=== PATIENT | male | born 1950 | race Caucasian/White ===

== ENCOUNTER → 2019-04-23 | Outpatient (CLI) | payer OTHER | END | disposition home or self-care (01) | LOC: RAH 10:12 | PROVIDERS: ATTEND Internal Medicine Cardiovascular Disease | DX: Z13.6 Encounter for screening for cardiovascular disorders (principal); R94.31 Abnormal electrocardiogram [ECG] [EKG] | CPT/HCPCS: 75571 ==

== ENCOUNTER 2019-04-30 13:00 | Inpatient (IN) | payer MEDICARE ==
[~2019-04-30] VITALS: Ht 181.6 cm; Wt 89.4 kg
[2019-04-30 15:00] LABS: BASOPHILS % (AUTO) 0.8 % (0.0-5.0); EOSINOPHILS % (AUTO) 3.3 % (0.0-8.0); HEMATOCRIT 41.7 % (42-54); LYMPHOCYTES % (AUTO) 30.1 % (21.0-51.0); MEAN CORPUSCULAR HEMOGLOBIN 31.9 pg (27.0-33.0); MEAN CORPUSCULAR HGB CONC 33.8 g/dL (32.0-36.0); MEAN CORPUSCULAR VOLUME 94.3 fL (79-99); MONOCYTES % (AUTO) 10.3 % (3.0-13.0); NEUTROPHILS % (AUTO) 55.4 % (40.0-77.0); PLATELET COUNT (AUTO) 231 K/uL (130-400); RED BLOOD CELL COUNT(AUTO) 4.42 MIL/uL (4.50-6.20); RED CELL DISTRIBUTION WIDTH 12.6 % (11.0-15.5); WHITE BLOOD COUNT (AUTO) 7.5 K/uL (4.8-10.8)
[2019-04-30 15:06] VITALS: BP 143/83
[2019-04-30 15:07] LABS: POTASSIUM 4.1 mmol/L (3.5-5.1)
[2019-04-30] MEDS ORDERED: ADAL40PE SQ (15:41)
[2019-04-30] MEDS ORDERED: ROSU20TA23 PO (15:41)
[2019-04-30] MEDS ORDERED: ASPI-555 PO (15:41)
[2019-04-30] MEDS ORDERED: CHLO25TA3 PO (15:41)
[2019-04-30] MEDS ORDERED: TIZA2CAP PO (15:41)
[2019-04-30] MEDS ORDERED: LEVO25TA4 PO (15:41)
[2019-05-01] VITALS (24 sets, daily range): BP systolic 93–144; BP diastolic 41–75
[2019-05-01] MEDS ORDERED: CEFAZOLIN SODIUM 1 GM VIAL ONE ×2 (05:59→11:22)
[2019-05-01] MEDS ORDERED: LACTATED RINGERS 1000ML 1,000 ML IV ONE ×2 (05:59→15:01)
[2019-05-01] MEDS ORDERED: BUPIVACAINE/EPI/PF 0.5% 30ML VIAL IJ ONE (06:30)
[2019-05-01] MEDS ORDERED: DURAMORPH PF1 MG/ML 10ML AMP IV ONE (06:30)
[2019-05-01] MEDS ORDERED: THROMBIN-JMI 20000 UNIT KIT TP ONE (06:31)
[2019-05-01] MEDS ORDERED: BACITRACIN 50,000 UNIT VIAL ONE (06:31)
--- NOTE | 2019-05-01 06:32 | NUR ---
SX PETAR TEDS/SCD APPLIED
[2019-05-01] MEDS ORDERED: SUCCINYLCHOLINE 200MG/10ML SYR ONE (06:40)
[2019-05-01] MEDS ORDERED: DEXAMETHASONE SOD PHOSPHATE 10MG/ML 1ML VIAL ONE (06:41)
[2019-05-01] MEDS ORDERED: GLYCOPYRROLATE 1 MG/5 ML SYRINGE ONE (06:41)
[2019-05-01] MEDS ORDERED: LIDOCAINE PF 2% 5ML ABBOJECT ONE (06:41)
[2019-05-01] MEDS ORDERED: PROPOFOL 10 MG/ML 20ML VIAL IV ONE (06:42)
[2019-05-01] MEDS ORDERED: MIDAZOLAM HCL 1 MG/ML 2ML VIAL ONE (06:42)
[2019-05-01] MEDS ORDERED: ONDANSETRON HCL 4 MG/2 ML VIAL ONE ×2 (06:42→13:20)
[2019-05-01] MEDS ORDERED: ROCURONIUM 10MG/1ML SYR 10 MG/ML ML ONE (06:42)
[2019-05-01] MEDS ORDERED: NEOSTIGMINE 5MG/5ML SYR IV ONE (06:42)
[2019-05-01] MEDS ORDERED: FENTANYL CITRATE PF 50 MCG/1 ML 2ML VIAL ONE ×5 (06:43→13:16)
[2019-05-01] MEDS ORDERED: EPHEDRINE SULFATE 50 MG/ML AMPULE ONE (07:41)
[2019-05-01] MEDS: CEFAZOLIN SODIUM 1 GM VIAL IVP ONE ×2 (08:00→12:00)
[2019-05-01] MEDS ORDERED: PHENYLEPHRINE HCL 10 MG/ML 1ML VIAL IV ONE ×2 (08:20→13:17)
[2019-05-01] MEDS ORDERED: GENTAMICIN 80 MG/NS 100 ML PB 100 ML IV ONE (09:07)
[2019-05-01] MEDS: LACTATED RINGERS 1000ML 1,000 ML IV SCH (13:32)
[2019-05-01] MEDS ORDERED: HYDROCODONE/ACETAMINOPHEN 5/325 MG TAB PO PRN (13:45)
[2019-05-01] MEDS: CEFAZOLIN SODIUM 1 GM VIAL IVP SCH ×2 (13:45→20:19)
[2019-05-01] MEDS ORDERED: TIZANIDINE HCL 2 MG TABLET PO PRN (13:45)
[2019-05-01] MEDS ORDERED: SODIUM CHLORIDE 0.9% 10 ML VIAL IVP PRN (13:45)
[2019-05-01] MEDS ORDERED: PROMETHAZINE HCL 25 MG/ML 1ML AMPULE IM PRN (13:45)
[2019-05-01] MEDS: DEXAMETHASONE SOD PHOSPHATE 4 MG/ML 1ML VIAL IVP SCH ×2 (13:45→20:19)
--- NOTE | 2019-05-01 17:30 | NUR ---
ALONSO DRAIN SUCTION APPLIED TO ALONSO DRAIN. 30CC SANGUINOUS FLUID REMOVED PRIOR TO SUCTION
[2019-05-01] MEDS ORDERED: ATORVASTATIN CALCIUM 40 MG TABLET PO SCH (21:00)
[2019-05-01] MEDS: MORPHINE SULFATE 2 MG/ML 1ML SYG IVP PRN (21:59)
[2019-05-02] MEDS: MORPHINE SULFATE 2 MG/ML 1ML SYG IVP PRN (01:48)
[2019-05-02] MEDS: DEXAMETHASONE SOD PHOSPHATE 4 MG/ML 1ML VIAL IVP SCH ×2 (01:48→08:16)
[2019-05-02] MEDS: LACTATED RINGERS 1000ML 1,000 ML IV SCH (02:29)
[2019-05-02 03:58] VITALS: BP 102/65
[2019-05-02] MEDS: CEFAZOLIN SODIUM 1 GM VIAL IVP SCH (05:20)
[2019-05-02] MEDS ORDERED: LEVOTHYROXINE 25 MCG TABLET PO SCH (06:30)
[2019-05-02 07:44] VITALS: BP 107/56
[2019-05-02] MEDS ORDERED: HUMIRA 40 MG SQ SCH (09:00)
[2019-05-02] MEDS ORDERED: ASPIRIN 81 MG EC TAB PO SCH (09:00)
[2019-05-02] MEDS ORDERED: HYDROCHLOROTHIAZIDE 25 MG TABLET PO SCH (09:00)
--- NOTE | 2019-05-02 10:41 | NUR ---
INFLUENZA VACCINE PER DATABASE, PT RECEIVED FLU VACCINE ON 03/15. Addendum: 05/02/19 at 1042 by OPHELIA VALLE RN Amended: Links added.
--- NOTE | 2019-05-02 11:00 | NUR ---
DISCHARGE INSTRUCTIONS GIVEN AND EXPLAINED UTILIZING TEACH BACK METHOD. INSTRUCTED TO TAKE STAPLE REMOVAL KIT PROVIDED TO WITH THEM TO DR. ONEILL'S APPOINTMENT, AND PT VERBALIZED UNDERSTANDING. EXPLAINED PROCEDURE FOR REMOVING ALONSO DRAIN AND CHANGING DRESSING, PT VERBALIZED UNDERSTANDING. TEACHING WITH TEACH BACK METHOD WAS DONE AND EXPLAINED TO PT'S REGARDING DRESSING CHANGE, RETURNED VERBAL DEMONSTRATION. REMOVED OLD DRESSING WITH MODERATE AMOUNT OF SANGUINEOUS DRAINAGE WITH NO ACTIVE DRAINAGE. NO REDNESS OR TENDERNESS. MILD SWELLING. NEELA INTACT. REMOVED NEELA TO ALONSO DRAIN, REMOVED SUCTION AND REMOVED ALONSO DRAIN WITH 45CC SANGUINEOUS DRAINAGE. CLEANSED SITE WITH 4X4 GAUZE AND NS, PAT DRIED AND PLACED DRESSING WITH 4X4 GAUZE SECURED WITH TAPE. PT TOLERATED WELL.
== END 2019-05-02 12:13 | disposition home or self-care (01) | DRG 460 ==
LOC: EDSTATUS 13:00 → EDUNIT# 13:00 → DAHIP 05-01 05:56 → 4AH 05-01 13:44
PROVIDERS: ADMIT Neurological Surgery; ATTEND Neurological Surgery
PROC: 0SG00AJ Fusion of Lumbar Vertebral Joint with Interbody Fusion Device, Posterior Approach, Anterior Column, Open Approach (ICD-10-PCS; principal; 2019-05-01 07:30)
PROC: 0SB20ZZ Excision of Lumbar Vertebral Disc, Open Approach (ICD-10-PCS; 2019-05-01 07:30)
PROC: 01NR0ZZ Release Sacral Nerve, Open Approach (ICD-10-PCS; 2019-05-01 07:30)
PROC: 4A11X4G Monitoring of Peripheral Nervous Electrical Activity, Intraoperative, External Approach (ICD-10-PCS; 2019-05-01 07:30)
DX: M48.061 Spinal stenosis, lumbar region without neurogenic claudication (principal); M51.26 Other intervertebral disc displacement, lumbar region; I10 Essential (primary) hypertension; M06.9 Rheumatoid arthritis, unspecified; E78.5 Hyperlipidemia, unspecified; Z79.82 Long term (current) use of aspirin
CPT/HCPCS: 36415; 71045; 72110; 80048; 85025; A4344; G0378; J0330; J0690; J1100; J1580; J2001; J2250; J2274; J2370; J2405; J2704; J2710; J3010; J3490; J7120

== ENCOUNTER → 2019-05-11 | Outpatient (CLI) | payer MEDICARE ==
[~2019-05-11] MED LIST: ADAL40PE SQ; ASPI-555 PO; CHLO25TA3 PO; LEVO25TA4 PO; ROSU20TA23 PO; TIZA2CAP PO
== END | disposition home or self-care (01) ==
LOC: OIH 13:24
PROVIDERS: ATTEND Neurological Surgery
DX: M47.817 Spondylosis without myelopathy or radiculopathy, lumbosacral region (principal); M48.061 Spinal stenosis, lumbar region without neurogenic claudication; M43.26 Fusion of spine, lumbar region
CPT/HCPCS: 72100

== ENCOUNTER → 2020-08-04 | Outpatient (CLI) | payer BC, MEDICARE ==
[~2020-08-04] MED LIST changes: -ASPI-555 PO; +ASPI-556 PO
== END | disposition home or self-care (01) ==
LOC: RAH 12:30
PROVIDERS: ATTEND Physical Medicine & Rehabilitation
DX: M47.22 Other spondylosis with radiculopathy, cervical region (principal); M48.02 Spinal stenosis, cervical region
CPT/HCPCS: 72141

== ENCOUNTER → 2020-09-09 | Outpatient (CLI) | payer BC, MEDICARE ==
[~2020-09-09] MED LIST changes: +GADOTERATE MEGLUMINE 5 MMOL/10 ML VIAL IV ONE; +IOPAMIDOL 10 ML VIAL ONE
== END | disposition home or self-care (01) ==
LOC: RAH 09:06
PROVIDERS: ATTEND Physical Medicine & Rehabilitation
DX: M25.512 Pain in left shoulder (principal); G56.82 Other specified mononeuropathies of left upper limb; M75.122 Complete rotator cuff tear or rupture of left shoulder, not specified as traumatic
CPT/HCPCS: 23350; 73223; 77002; A9575; Q9966

== ENCOUNTER 2020-10-09 11:45 | Emergency (ER) | payer BC, MEDICARE ==
[~2020-10-09] VITALS: Ht 180.3 cm; Wt 88.0 kg
[~2020-10-09 11:45] MED LIST changes: -GADOTERATE MEGLUMINE 5 MMOL/10 ML VIAL IV ONE; -IOPAMIDOL 10 ML VIAL ONE
[2020-10-09 11:47] VITALS: BP 134/65
[2020-10-09] MEDS ORDERED: 0.9% NACL 250ML IVPB ONE (12:20)
[2020-10-09 12:24] LABS: BASOPHILS % (AUTO) 0.4 % (0.0-5.0); HEMATOCRIT 43.3 % (42-54); LYMPHOCYTES % (AUTO) 13.8 % (21.0-51.0); MEAN CORPUSCULAR HEMOGLOBIN 31.7 pg (27.0-33.0); MEAN CORPUSCULAR HGB CONC 33.3 g/dL (32.0-36.0); MEAN CORPUSCULAR VOLUME 95.4 fL (79-99); MONOCYTES % (AUTO) 12.1 % (3.0-13.0); NEUTROPHILS % (AUTO) 72.3 % (40.0-77.0); PLATELET COUNT (AUTO) 192 K/uL (130-400); RED BLOOD CELL COUNT(AUTO) 4.54 MIL/uL (4.50-6.20); RED CELL DISTRIBUTION WIDTH 13.1 % (11.0-15.5); WHITE BLOOD COUNT (AUTO) 14.7 K/uL (4.8-10.8)
[2020-10-09] MEDS ORDERED: VANCOMYCIN 1G VIAL IVPB ONE (12:30)
[2020-10-09] MEDS ORDERED: 0.9%NACL 1000ML 1,000 ML IV ONE (12:30)
[2020-10-09 12:33] LABS: CREATININE 1.2 mg/dL (0.5-1.5); POTASSIUM 3.9 mmol/L (3.5-5.1)
[2020-10-09 12:37] LABS: ALBUMIN 3.7 g/dL (3.5-5.0); BILIRUBIN,TOTAL 0.7 mg/dL (0.2-1.0); TOTAL PROTEIN, SERUM 8.2 g/dL (6.0-8.3)
[2020-10-09] MEDS ORDERED: VANCOMYCIN KIT 250 ML IV ONE (12:54)
== END 2020-10-09 16:14 | disposition home or self-care (01) ==
LOC: EDH 11:45
DX: L03.114 Cellulitis of left upper limb (principal); L03.124 Acute lymphangitis of left upper limb; L02.414 Cutaneous abscess of left upper limb; E03.9 Hypothyroidism, unspecified; I10 Essential (primary) hypertension; E78.00 Pure hypercholesterolemia, unspecified; M19.90 Unspecified osteoarthritis, unspecified site; Z79.82 Long term (current) use of aspirin; Z79.899 Other long term (current) drug therapy
CPT/HCPCS: 36415; 80053; 83605; 85025; 87040 ×2; 87070; 96365; 96366; 99284; J3370

== ENCOUNTER → 2024-08-08 | Outpatient (CLI) | payer MEDICARE ==
--- NOTE | 2024-08-08 09:42 | HMCIMG ---
Exam Type: CHEST 1VW Clinical Information: Hypertensive heart disease without heart failure Comparison: None Findings: Left cardiac pacemaker is noted with leads in place. The lungs are clear of infiltrates. The heart is normal in size. The bony and soft tissue structures of the chest are unremarkable. Impression: Clear lungs.
== END | disposition home or self-care (01) ==
LOC: RAH 08:59
PROVIDERS: ATTEND Family Medicine
DX: I11.9 Hypertensive heart disease without heart failure (principal)
CPT/HCPCS: 71045

== ENCOUNTER → 2025-01-02 | Outpatient (CLI) | payer MEDICARE ==
[2025-01-02 11:01] LABS: APPEARANCE,URINE CLEAR (CLEAR); GLUCOSE, URINE (UA) NEGATIVE (NEGATIVE); LEUKOCYTE ESTERASE ,URINE NEGATIVE Leu/uL (NEGATIVE); NITRATE,URINE NEGATIVE (NEGATIVE); OCCULT BLOOD,URINE NEGATIVE (NEGATIVE)
[2025-01-02 11:09] LABS: IMMATURE GRANULOCYTE ABSOLUTE 0.04 K/uL (0-1); NUCLEATED RED BLOOD CELLS 0.0 % (0.0-0.19); PLATELET COUNT (AUTO) 218 K/uL (130-400); RED BLOOD CELL COUNT(AUTO) 4.76 MIL/uL (4.50-6.20); RED CELL DISTRIBUTION WIDTH 12.5 % (11.0-15.5); WHITE BLOOD COUNT (AUTO) 11.4 K/uL (4.8-10.8)
[2025-01-02 11:15] LABS: ASPARTATE AMINOTRANSFERASE 59.0 U/L (10-37); CREATININE 0.8 mg/dL (0.5-1.3); GLOMERULAR FILTR. RATE CALC 92.0 mL/min (>90); GLUCOSE,RANDOM 112.0 mg/dL (70-105); SODIUM SERUM 142.0 mmol/L (136-145); TOTAL PROTEIN, SERUM 7.7 g/dL (6.0-8.3); UREA NITROGEN, BLOOD 21.0 mg/dL (7-18)
[2025-01-02 11:30] LABS: SQUAMOUS EPITHELIAL CELL,UR RARE /HPF (0-2)
[2025-01-02 11:33] LABS: INR 0.94 (0.85-1.15)
--- NOTE | 2025-01-02 15:24 | HMCIMG ---
EXAM: CR Chest, 1 View. CLINICAL HISTORY: Hypertensive heart disease without heart failure COMPARISON: August 08, 2024 FINDINGS: LUNGS: There is no mass, infiltrate, or acute pulmonary abnormality. PLEURAL SPACES: No pleural effusion or pneumothorax. Cardiac pacemaker was seen MEDIASTINUM: Cardiac size and mediastinal contours within normal limits. BONES: No acute osseous abnormality. IMPRESSION: No acute cardiopulmonary pathology is evident. /Radnor
== END | disposition home or self-care (01) ==
LOC: LAB 10:05
PROVIDERS: ATTEND Family Medicine
DX: Z01.818 Encounter for other preprocedural examination (principal); I11.9 Hypertensive heart disease without heart failure; Z51.81 Encounter for therapeutic drug level monitoring; Z79.899 Other long term (current) drug therapy
CPT/HCPCS: 36415; 71045; 80053; 81001; 85025; 85610; 85730; 87086